=== PATIENT | female | born 1990 | race Caucasian/White ===

== ENCOUNTER 2023-07-28 10:41 | Emergency (ER) | payer BC ==
[~2023-07-28] VITALS: Ht 162.6 cm; Wt 65.5 kg
[~2023-07-28 10:41] MED LIST: CEPHALEXIN500 M1 PO; CILOXAN .3% EY2.5 ML OP; IBU800 M1 PO; PERCOCET 325 MG1 TA2 PO; PRENATAL TABLET PO; SLOW FE142 MG PO
[2023-07-28 10:47] VITALS: TEMP 97.9
[2023-07-28] MEDS ORDERED: NS 1,000 ML IV ONE ×2 (12:45→14:15)
[2023-07-28] MEDS ORDERED: Ondansetron 4 MG/2 ML VIAL IV ONE (12:45)
[2023-07-28 12:54] LABS: BASO % 0.1 % (0.0-2.0); EOS # 0.1 K/mm3 (0.0-0.7); EOS % 1.1 % (0.0-4.0); GRAN # 7.2 K/mm3 (1.4-6.5); GRAN % 86.7 % (42.2-75.2); HEMOGLOBIN 13.7 g/dl (12.5-16.0); LYMPH # 0.6 K/mm3 (1.2-3.4); LYMPH % 6.8 % (20.0-51.0); MEAN CELL VOLUME 90 fl (80.0-100.0); MEAN CORPUSCULAR HEMOGLOBIN 30 pg (27-31); MEAN CORPUSCULAR HGB CONC 33 g/dl (33.0-37.0); MEAN PLATELET VOLUME 9.1 fl (7.4-10.4); MONO # 0.4 K/mm3 (0.1-0.6); MONO % 4.9 % (1.7-9.3); PLATELET COUNT 164 K/mm3 (130-400); RED BLOOD COUNT 4.55 M/mm3 (4.10-5.30); REDCELL DISTRIBUTION WIDTH-CV 13.2 % (11.5-14.5)
[2023-07-28 12:59] LABS: URINE APPEARANCE CLEAR (CLEAR/HAZY); URINE BLOOD NEGATIVE (NEGATIVE); URINE COLOR Dark Yellow (YELLOW); URINE GLUCOSE NEGATIVE (NEGATIVE); URINE KETONE 3+ (NEGATIVE); URINE NITRATE NEGATIVE (NEGATIVE); URINE PROTEIN(semi-quant) 1+ (NEGATIVE)
[2023-07-28 13:12] LABS: ALBUMIN 3.5 gm/dL (3.5-5.0); BILIRUBIN,TOTAL 0.7 mg/dL (0.2-1.2); CALCIUM 8.2 mg/dL (8.4-10.2); CREATININE, serum 0.72 mg/dL (0.57-1.11); POTASSIUM 3.2 mmol/L (3.5-4.5); TOTAL PROTEIN 7.6 gm/dL (6.2-8.1)
[2023-07-28 13:16] LABS: MUCOUS PRESENT (NOT PRESENT); URINE BACTERIA NONE SEEN /hpf (NONE SEEN); URINE RBC 0-2 /hpf (0-2)
[2023-07-28 13:17] LABS: COLLECTION METHOD CLEAN CATCH
[2023-07-28] MEDS ORDERED: K-DUR20 MEQ PO (15:06)
[2023-07-28] MEDS ORDERED: ZOFRAN ODT4 MG PO (15:06)
[2023-07-28 16:14] VITALS: BP 115/59; PULSE 90
== END 2023-07-28 16:15 | disposition home or self-care (01) ==
LOC: COL.ER 10:41
PROVIDERS: Nurse Practitioner
DX: O99.282 Endocrine, nutritional and metabolic diseases complicating pregnancy, second trimester (principal); E87.6 Hypokalemia; Z3A.25 25 weeks gestation of pregnancy
CPT/HCPCS: J2405; J7030

== ENCOUNTER 2023-11-02 05:37 | Inpatient (IN) | payer BC ==
[2023-11-02] VITALS (18 sets, daily range): BP systolic 101–139; BP diastolic 51–79; PULSE 51–69; TEMP 97.7–98.2
[~2023-11-02] VITALS: Ht 161.3 cm; Wt 68.6 kg
[~2023-11-02 05:37] MED LIST changes: +K-DUR20 MEQ PO; +ZOFRAN ODT4 MG PO
--- NOTE | 2023-11-02 05:50 | NUR ---
Pt ambulatory to 213 for scheduled with spouse. Clean gown on. EFM and TOCO explained and applied. Pt denies contractions, leaking of fluids or vaginal bleeding. Reports good movement. Plan of care explained to pt who verbalized her understanding. 0600: IV started and LR fluids infusing without difficulty.
[2023-11-02] MEDS ORDERED: LR 1,000 ML IV SCH (06:15)
--- NOTE | 2023-11-02 06:15 | NUR ---
[facility]
--- NOTE | 2023-11-02 06:20 | NUR ---
CARE OF PATIENT RECIEVED FROM SERA GANN RN. PATIENT RESTING IN BED.
[2023-11-02 06:43] LABS: BASO % 0.3 % (0.0-2.0); EOS # 0.3 K/mm3 (0.0-0.7); EOS % 2.9 % (0.0-4.0); GRAN # 5.8 K/mm3 (1.4-6.5); GRAN % 66.4 % (42.2-75.2); HEMOGLOBIN 11.8 g/dl (12.5-16.0); LYMPH # 1.9 K/mm3 (1.2-3.4); LYMPH % 22.4 % (20.0-51.0); MEAN CELL VOLUME 90 fl (80.0-100.0); MEAN CORPUSCULAR HEMOGLOBIN 30 pg (27-31); MEAN CORPUSCULAR HGB CONC 34 g/dl (33.0-37.0); MEAN PLATELET VOLUME 10.7 fl (7.4-10.4); MONO # 0.6 K/mm3 (0.1-0.6); MONO % 7.4 % (1.7-9.3); PLATELET COUNT 143 K/mm3 (130-400); RED BLOOD COUNT 3.91 M/mm3 (4.10-5.30)
[2023-11-02] MEDS ORDERED: ZOLOFT 50MG50 MG PO (06:44)
[2023-11-02] MEDS ORDERED: VITAMIN C500 MG PO (06:45)
[2023-11-02] MEDS ORDERED: ZYRTEC 10MG10 MG PO (06:45)
[2023-11-02 06:46] LABS: HEMATOCRIT 35.2 % (37.0-47.0)
[2023-11-02] MEDS ORDERED: NATURAL MAGNES200 MG PO (06:46)
[2023-11-02] MEDS ORDERED: Loratadine 10 MG TAB PO PRN (08:15)
[2023-11-02] MEDS ORDERED: Magnes Hydrox (MOM) 80 MG/ML 30 ML CUP PO PRN (08:15)
--- NOTE | 2023-11-02 10:46 | NUR ---
Initial visit; Parents thanked [employer]er for looking in on them and offering congratulations and God's blessings for the of their daughter. [employer] Examiner thanked family for choosing our hospital to which they responded by stating their experience here has been a very good one.
[2023-11-02] MEDS ORDERED: oxyCODONE/Acetaminophen 5-325 MG TAB PO PRN (12:45)
[2023-11-02] MEDS ORDERED: LR 1,000 ML IV PRN (12:45)
[2023-11-02] MEDS ORDERED: Ondansetron 4 MG/2 ML VIAL IV PRN (12:45)
[2023-11-02] MEDS ORDERED: Naloxone 0.4 MG/ML VIAL IV PRN (12:45)
[2023-11-02] MEDS ORDERED: Measles/Mumps/Rubella Virus Vaccine Live w Diluent 0.5 ML VIAL SQ SCH (12:45)
[2023-11-02] MEDS ORDERED: Ibuprofen 800 MG TAB PO SCH (14:14)
--- NOTE | 2023-11-02 16:45 | NUR ---
PATIENT UP TO BATHROOM STANDBY ASSIST X 1 RN. LOWRY CATHETER REMOVED. PATIENT UNABLE TO VOID. PERICARE COMPLETED. DRESSING CLEAN, DRY, AND INTACT. PATIENT ASSSITED BACK TO BED.
[2023-11-02] MEDS ORDERED: Sennosides/Docusate 8.6-50 MG TAB PO SCH (17:00)
[2023-11-02] MEDS ORDERED: traZODone 50 MG TAB PO PRN (21:00)
[2023-11-03 02:30] VITALS: BP 108/77; PULSE 52; TEMP 97.8
[2023-11-03 08:30] VITALS: BP 103/60; PULSE 60; TEMP 97.3
--- NOTE | 2023-11-03 14:00 | NUR ---
Rests in bed, alert. Percocet 5/325 mg two given per request and as ordered.
[2023-11-03 16:45] VITALS: BP 98/68; PULSE 98; TEMP 97.7
[2023-11-03 21:30] VITALS: BP 99/59; PULSE 61; TEMP 97.7
[2023-11-04 07:13] VITALS: BP 98/53; PULSE 78; TEMP 98
[2023-11-04 16:30] VITALS: BP 117/62; PULSE 60; TEMP 97.3
[2023-11-04 20:30] VITALS: BP 110/46; PULSE 65; TEMP 98
[2023-11-05 06:58] VITALS: BP 113/64; PULSE 66; TEMP 98.3
[2023-11-05] MEDS ORDERED: IBU800 M1 PO (09:07)
[2023-11-05] MEDS ORDERED: PERCOCET 325 MG1 TA2 PO (09:07)
== END 2023-11-05 11:20 | disposition home or self-care (01) | DRG 788 ==
LOC: OB 05:37
PROVIDERS: ADMIT Obstetrics & Gynecology
PROC: 10D00Z1 Extraction of Products of Conception, Low, Open Approach (ICD-10-PCS; principal; 2023-11-02)
DX: O34.211 Maternal care for low transverse scar from previous cesarean delivery (principal); Z3A.39 39 weeks gestation of pregnancy; Z37.0 Single live birth; O26.893 Other specified pregnancy related conditions, third trimester; Z23 Encounter for immunization; Z67.21 Type B blood, Rh negative
CPT/HCPCS: J7120